=== PATIENT | male | born 1950 | race Hispanic/Latino ===

== ENCOUNTER 2018-08-24 06:48 | Day surgery (SDC) | payer OTHER ==
[2018-08-24] MEDS ORDERED: NA CHLORIDE 0.9% 1,000 ML ONE (07:16)
[2018-08-24] MEDS ORDERED: LIDOCAINE 1% MPF 5 ML VIAL ONE (07:43)
[2018-08-24] MEDS ORDERED: MIDAZOLAM HCL 2 MG/2 ML INJ ONE (07:43)
[2018-08-24] MEDS ORDERED: PROPOFOL 200 MG/20 ML VIAL IV ONE (07:43)
[2018-08-24] MEDS ORDERED: FENTANYL CITR 100 MCG/2 ML ONE (07:43)
[2018-08-24] MEDS ORDERED: CEFAZOLIN/SWI 1gm 1 GM/10 ML SYR ONE (07:55)
[2018-08-24] MEDS ORDERED: COLLAGENASE 30 GM OINTMENT TOP ONE (08:11)
[2018-08-24] MEDS ORDERED: ONDANSETRON 4 MG/2 ML VIAL ONE (08:13)
[2018-08-24] MEDS ORDERED: KETOROLAC 30 MG/ML INJ ONE (08:13)
[2018-08-24] MEDS ORDERED: LABETALOL 20 MG/4ML SYRINGE IV ONE (08:18)
--- NOTE | 2018-08-24 08:26 | P.BOP ---
Preoperative diagnosis: Second degree infected burn right foot, right 1st,2nd 3rd 5th toes Postoperative diagnosis: same Primary procedure: excisional dbridememt of infected second degreee burn : Secondary procedure: right foot, right 1st,2nd 3rd 5th toes Estimated blood loss: <10cc Specimen: culture Findings: Second degree infected burn right foot, right 1st,2nd 3rd 5th toes Anesthesia: General Transferred to: Recovery Room Condition: Good
[2018-08-24] MEDS: HYDROMORPHONE HCL 1 MG/ML INJ ONE ×2 (08:36→08:39)
[2018-08-24] MEDS: HYDROMORPHONE HCL 2 MG/ML inj ONE ×3 (08:47→09:04)
[2018-08-24 08:48] VITALS: O2SAT 95
[2018-08-24 10:33] VITALS: BP 138/87; TEMP 98.2
--- NOTE | 2018-08-24 19:37 | OP ---
Date of Procedure: 08/24/2018 Surgeon: Parviz Liu MD Preoperative Diagnoses: Second-degree infected burn, right foot, with also right first, second, thir d, and fifth toes second-degree burn with cellulitis. Postoperative Diagnoses: Second-degree infected burn, right foot, with also right first, second, thi rd, and fifth toes second-degree burn with cellulitis. Procedures: Excisional debridement of infected second-degree burn over: 1.Right foot. 2.Right first toe. 3.Right second toe. 4.Right third toe. 5.Right fifth toe. Specimen: Culture. Findings: Second-degree burn with infection cellulitis and devitalized tissue was removed from those areas and also burn was debrided. Anesthesia: General plus local. Indications: This is a case of a male who was cooking some brisket at home and the brisket fell in w ith the grease and it caused a deep second-degree burn to the distal foot and toe region. This happe mainor about a week ago. He has treated this the best he can. He now comes with infected burn over the area with redness over the foot region and cellulitis and devitalized tissue. The patient was sent to my office for immediate evaluation. The patient was sent a few hours ago. We scheduled him for d ebridement of infected burn of those areas mentioned above. The benefits, alternatives, and risks in cluding, but not limited to infection, bleeding, damage to adjacent structures, anesthesia complicati on, nonhealing wound, UT, and even . He also understands this may not relieve any symptoms. He might need more than one surgical intervention that may require even amputation. He was prescribed yesterday Santyl. He has not got it yet, so today we gave him the Santyl at the end of the case, but he was advised the importance of follow recommendations including his antibiotics p.o. that he says he is taking, but has not been able to get access to them, which is important to make sure he is prop erly treated. He is going to work on that today. The area of concern was marked by me and the patie nt in the holding room. Procedure In Detail: The patient was brought to the operating room, placed in supine position. Anes thesia was done without complication. Right foot was prepped and draped in the usual sterile fashion . After that, we proceeded to do debridement of the area. We used a sharp knife to remove all the d evitalized tissue from the foot and the first, second, third, and fifth toes. Also the scar tissue w as removed. No tendons exposed. The area was irrigated. This area comprised of an area of about a 14 x 8 cm. Hemostasis was obtained, and the area was covered with Santyl and a Nu Gauze on top. The patient tolerated the procedure well. The patient was sent to Recovery in stable condition. KEILA/JCARLOS Voice ID: [id number] Report ID: [id number]
--- NOTE | 2018-08-24 19:43 | DS ---
Date of Discharge: 08/24/2018 Diagnoses: Second degree infected burn right foot and right first, second, third, and fifth toes, ap proximately 14 x 8 cm. Procedure: Excisional debridement of infected second-degree bridges over the areas mentioned above. Disposition: Home. The patient will have home health agency to do Santyl daily and keep the area cl ainsley and dry. He may clean with soap water, but he should not expose this to dirty water, only runnin g clean water. [facility] now. Avoid direct sunlight. Medications: We are going to give him Tylenol No. 3 q.4 hours p.r.n. pain, and he already has his p. o. antibiotics. The Santyl will be provided today. BEAR Voice ID: [id number] Report ID: [id number]
== END 2018-08-24 10:15 | disposition home or self-care (01) ==
LOC: OR 06:48
PROVIDERS: ATTEND Surgery
PROC: 0JBQ0ZZ Excision of Right Foot Subcutaneous Tissue and Fascia, Open Approach (ICD-10-PCS; principal; 2018-08-24 08:15)
DX: T25.221A Burn of second degree of right foot, initial encounter (principal); T25.231A Burn of second degree of right toe(s) (nail), initial encounter; T31.0 Burns involving less than 10% of body surface; L03.031 Cellulitis of right toe; L03.115 Cellulitis of right lower limb; X10.2XXA Contact with fats and cooking oils, initial encounter; Y93.G3 Activity, cooking and baking; E11.9 Type 2 diabetes mellitus without complications; I10 Essential (primary) hypertension; Z79.84 Long term (current) use of oral hypoglycemic drugs; Z79.899 Other long term (current) drug therapy
CPT/HCPCS: 11042; 11045 ×5; 87070; 87205; 82962 ×2; J2704; J2250; J1170 ×2; J3010; J0690; J7030; J2405; J3590